=== PATIENT | female | born 1985 | race African-American/Black ===

== ENCOUNTER 2019-02-17 11:35 | Emergency (ER) | payer OTHER ==
[~2019-02-17] VITALS: Ht 167.6 cm; Wt 123.4 kg
[2019-02-17 11:52] VITALS: BP 135/77; Ht 167.6 cm; Wt 123.4 kg
== END 2019-02-17 13:36 | disposition home or self-care (01) ==
LOC: ED 11:35
DX: N39.0 Urinary tract infection, site not specified (principal); H66.92 Otitis media, unspecified, left ear
CPT/HCPCS: 87804; Q0092

== ENCOUNTER 2019-03-04 08:09 | Emergency (ER) | payer OTHER ==
[~2019-03-04] VITALS: Ht 162.6 cm; Wt 117.5 kg
[2019-03-04 08:13] VITALS: Ht 162.6 cm; Wt 117.5 kg
[2019-03-04 10:44] VITALS: BP 131/77
== END 2019-03-04 10:44 | disposition home or self-care (01) ==
LOC: ED 08:09
DX: M54.5 Low back pain (principal); Z98.890 Other specified postprocedural states
CPT/HCPCS: J1885

== ENCOUNTER 2020-07-06 12:11 | Emergency (ER) | payer OTHER ==
[~2020-07-06] VITALS: Ht 165.1 cm; Wt 122.5 kg
[2020-07-06 12:25] VITALS: Ht 165.1 cm; Wt 122.5 kg
[2020-07-06 14:06] LABS: PLATELET COUNT 240 x10^3mcL (179-408); RED CELL DISTRIBUTION WIDTH 14.2 % (12.3-17.7)
[2020-07-06 14:43] LABS: GFR1 > 60 mL/min
[2020-07-06 14:44] LABS: ALBUMIN 3.7 g/dL (3.4-5.0)
[2020-07-06 14:50] LABS: CALCIUM 9.1 mg/dL (8.5-10.1); CARBON DIOXIDE 30.5 mmol/L (21-32); CHLORIDE SERUM 104 mmol/L (98-107); CREATININE SERUM 0.7 mg/dL (0.6-1.0); GLUCOSE SERUM 82 mg/dL (74-106); POTASSIUM SERUM 4.5 mmol/L (3.5-5.1); SODIUM SERUM 141 mmol/L (136-145)
[2020-07-06 14:54] LABS: ALKALINE PHOSPHATASE 84 U/L (46-116); ALT/SGPT 30 U/L (14-59); AMYLASE 71 U/L (25-115); AST/SGOT 16 U/L (15-37); BILIRUBIN TOTAL 0.9 mg/dL (0.20-1.00); LIPASE 123 IU/L (73-393); TOTAL PROTEIN, SERUM 6.9 g/dL (6.4-8.2)
[2020-07-06] MEDS ORDERED: BACTRIM DS1 TAB PO (15:08)
[2020-07-06] MEDS ORDERED: ACETAMINOPHEN-H1 TA1 PO ×3 (15:08→17:07)
[2020-07-06] MEDS ORDERED: LOMOTIL1 TAB PO ×3 (15:08→17:06)
[2020-07-06 15:41] VITALS: BP 109/64
== END 2020-07-06 15:41 | disposition home or self-care (01) ==
LOC: ED 12:11
PROVIDERS: Emergency Medicine
DX: R10.813 Right lower quadrant abdominal tenderness (principal)
CPT/HCPCS: J2405